=== PATIENT | female | born 1990 | race Caucasian/White ===

== ENCOUNTER 2017-02-14 10:58 | Emergency (ER) | payer SELFPAY ==
[~2017-02-14] VITALS: Ht 180.3 cm; Wt 70.6 kg
[~2017-02-14 10:58] MED LIST: [UNRECOGNIZED DRUG - REMARK]
[2017-02-14] MEDS ORDERED: ONDANSETRON 2MG/ML, 2ML ONE (11:54)
[2017-02-14] MEDS ORDERED: HYDROmorphone 1 MG/ML, 1ML ONE (11:54)
[2017-02-14] MEDS ORDERED: HYDROmorphone 1 MG/ML, 1ML IM ONE (12:00)
[2017-02-14] MEDS ORDERED: ONDANSETRON 2MG/ML, 2ML IVPush ONE (12:00)
[2017-02-14] MEDS ORDERED: SODIUM CHLORIDE 0.9%, 500ML IVBOLUS ONE ×2 (12:00→13:00)
[2017-02-14 12:16] LABS: HEMATOCRIT 43.3 % (34.6-47.8); HEMOGLOBIN 14.8 g/dL (11.7-16.4); WHITE BLOOD COUNT 9.4 x10^3/uL (3.4-10)
[2017-02-14 12:25] LABS: BLOOD UREA NITROGEN 14 mg/dL (7-18)
[2017-02-14 12:30] LABS: ASPARTATE AMINO TRANSFERASE 15 U/L (15-37)
[2017-02-14] MEDS ORDERED: MAALOX/HYOSCYAMINE/LIDOCAINE 45 ML BTL PO ONE (14:00)
[2017-02-14] MEDS ORDERED: ONDANSETRON ODT 4 MG PO ONE (14:00)
[2017-02-14] MEDS ORDERED: MAALOX/HYOSCYAMINE/LIDOCAINE 45 ML BTL ONE (14:03)
[2017-02-14] MEDS ORDERED: PROMETHAZINE 25 MG/ML, 1ML ONE (14:03)
[2017-02-14 14:15] VITALS: BP 126/67
[2017-02-14] MEDS ORDERED: PROMETHAZINE 25 MG/ML, 1ML IM ONE (14:30)
== END 2017-02-14 15:31 ==
LOC: ED 13:19
DX: K21.9 Gastro-esophageal reflux disease without esophagitis (principal); K29.00 Acute gastritis without bleeding; K25.9 Gastric ulcer, unspecified as acute or chronic, without hemorrhage or perforation; R11.2 Nausea with vomiting, unspecified; Z87.891 Personal history of nicotine dependence
CPT/HCPCS: 36415; 76700; 80053; 81001; 83690; 84703; 85025; 96361; 96372; 96374; 99285; J1170; J2405; J2550; J7040

== ENCOUNTER 2018-10-01 09:25 | Emergency (ER) | payer MEDICAID ==
[~2018-10-01] VITALS: Ht 180.3 cm; Wt 60.0 kg
--- NOTE | 2018-10-01 09:41 | NUR ---
PT PRESENTED TO ED WITH N/V SINCE MONDAY. PT STATED SHE ATE OUT AT [employer] AND THEN DEVELOPED VOMITTING FOR SEVERAL DAYS. PT A&OX4. PT PLACED IN ROOM AND PLACED ON BP AND CONT. PULSE OXIMETER. ASSESSMENT COMPLETED. CALL LIGHT IN REACH.
[2018-10-01] MEDS ORDERED: FAMOTIDINE 20 MG/2 ML ONE (09:44)
[2018-10-01] MEDS ORDERED: ONDANSETRON 2MG/ML, 2ML ONE (09:44)
[2018-10-01] MEDS ORDERED: SODIUM CHLORIDE 0.9% 1,000ML IVBOLUS ONE (10:00)
[2018-10-01] MEDS ORDERED: MAALOX/HYOSCYAMINE/LIDOCAINE 45 ML BTL PO ONE (10:00)
[2018-10-01] MEDS ORDERED: SODIUM CHLORIDE FLUSH 10ML SYR IVF ONE (10:00)
[2018-10-01] MEDS ORDERED: ONDANSETRON 2MG/ML, 2ML IVPush ONE (10:00)
[2018-10-01] MEDS ORDERED: FAMOTIDINE 20 MG/2 ML IVP ONE (10:00)
[2018-10-01 10:13] LABS: BASOPHILS # (AUTO) 0.05 x10^3/uL (0-0.1); BASOPHILS % (AUTO) 1 % (0-1); EOSINOPHILS % (AUTO) 0 % (1-7); LYMPHOCYTES # (AUTO) 0.59 x10^3/uL (1-3.4); LYMPHOCYTES % (AUTO) 8 % (22-44); MD NO; MEAN CORPUSCULAR HEMOGLOBIN 29.7 pg (27.0-34.8); MEAN CORPUSCULAR HGB CONC 34.7 g/dL (32.4-35.8); MEAN CORPUSCULAR VOLUME 85.6 fL (80-100); MEAN PLATELET VOLUME 7.9 fL (7.4-10.4); MONOCYTES # (AUTO) 0.18 x10^3/uL (0.2-0.8); MONOCYTES % (AUTO) 2 % (2-9); NEUTROPHILS # (AUTO) 7.02 x10^3/uL (1.8-6.8); NEUTROPHILS % (AUTO) 90 % (42-75); PLATELET COUNT 262 x10^3/uL (130-400); RED BLOOD COUNT 5.35 x10^6/uL (3.82-5.3); RED CELL DISTRIBUTION WIDTH 13.9 % (9.6-15.2)
[2018-10-01 10:25] LABS: ALANINE AMINOTRANSFERASE 25 U/L (12-78); ALBUMIN 4.7 g/dL (3.4-5.0); ANION GAP 12 mmol/L (5-15); CALCIUM 9.6 mg/dL (8.5-10.1); CHLORIDE 106 mmol/L (98-107); CREATININE 1.03 mg/dL (0.55-1.02)
[2018-10-01] MEDS ORDERED: MAALOX/HYOSCYAMINE/LIDOCAINE 45 ML BTL ONE (10:27)
[2018-10-01 10:30] LABS: ALKALINE PHOSPHATASE 67 U/L (45-117); BILIRUBIN,TOTAL 1.3 mg/dL (0.2-1.0)
[2018-10-01] MEDS ORDERED: MORPHINE SULFATE 4 MG/ML, 1ML IVPush PRN (11:00)
[2018-10-01] MEDS ORDERED: MORPHINE SULFATE 4 MG/ML, 1ML ONE (11:05)
--- NOTE | 2018-10-01 11:09 | NUR ---
PT STATES ABD PAIN OF 9/10. PT GIVEN MORPHINE 4 MG IV.
--- NOTE | 2018-10-01 11:09 | NUR ---
US AT BEDSIDE
--- NOTE | 2018-10-01 11:47 | NUR ---
PT STATING PAIN IS BETTER AFTER MORPHINE GIVEN.
[2018-10-01 13:28] VITALS: BP 127/75
== END 2018-10-01 13:30 | disposition home or self-care (01) ==
LOC: ED 11:47
DX: E86.0 Dehydration (principal); R11.2 Nausea with vomiting, unspecified
CPT/HCPCS: 36415; 76700; 80053; 83690; 84703; 85025; 96361; 96374; 96375; 99284; J2405; J3490; J7030

== ENCOUNTER 2020-08-26 12:20 | Emergency (ER) | payer SELFPAY ==
[~2020-08-26] VITALS: Ht 180.3 cm; Wt 69.3 kg
--- NOTE | 2020-08-26 12:59 | NUR ---
ranch supervisor: pt from lobby to room [id number]
--- NOTE | 2020-08-26 13:27 | NUR ---
PT C/O DISCONNECTED THOUGHTS. PT STATES "ILL BE DRIVING AND I WILL BE CONFUSED ON HOW I AM DRIVING OR HOW THE CAR IS WORKING." PT HAS ALWAYS HAD SOME DISCONNECTED THOUGHTS BUT IT HAS BEEN WORSENING LATELY. PT ALSO C/O HEADACHE. PT HIT HEAD 2 WEEKS AGO. PT UNSURE IF SHE LOST CONSCIOUS. PT WAS NOT SEEN AT THAT TIME.
--- NOTE | 2020-08-26 14:03 | NUR ---
PT AMBULATORY WITH STEADY GAIT TO BATHROOM. PT VERBALIZED UNDERSTANDING OF HOW TO OBTAIN CLEAN CATCH SAMPLE. PT PROVIDED URINE SAMPLE. SENT TO LAB. Addendum: 08/26/20 at 1405 by MINGALLS BREAK RN: PT AMBULATORY WITH STEADY GAIT TO BATHROOM. PT VERBALIZED UNDERSTANDING OF HOW TO OBTAIN CLEAN CATCH SAMPLE. PT PROVIDED URINE SAMPLE. SAMPLE WALKED TO LAB.
[2020-08-26 14:33] LABS: MICROSCOPIC NOT IND
--- NOTE | 2020-08-26 14:35 | NUR ---
SENIOR BUYER BEDSIDE
[2020-08-26 14:37] LABS: BASOPHILS % (AUTO) 1 % (0-1); EOSINOPHILS % (AUTO) 1 % (1-7); LYMPHOCYTES % (AUTO) 23 % (22-44); MEAN CORPUSCULAR HEMOGLOBIN 28.8 pg (27.0-34.8); MEAN CORPUSCULAR HGB CONC 32.9 g/dL (32.4-35.8); MEAN PLATELET VOLUME 7.3 fL (7.4-10.4); MONOCYTES % (AUTO) 9 % (2-9); NEUTROPHILS % (AUTO) 67 % (42-75); PLATELET COUNT 234 x10^3/uL (130-400); RED CELL DISTRIBUTION WIDTH 13.9 % (9.6-15.2)
[2020-08-26 14:38] LABS: MD NO
[2020-08-26 14:46] LABS: AMPHETAMINE SCREEN, URINE Negative (Negative); BARBITURATE SCREEN, URINE Negative (Negative); CANNABINOID SCREEN, URINE Positive (Negative); METHADONE SCREEN, URINE Negative (Negative)
[2020-08-26 14:47] LABS: BENZODIAZEPINE SCREEN, URINE Negative (Negative); COCAINE SCREEN, URINE Negative (Negative); OPIATE SCREEN, URINE Negative (Negative)
[2020-08-26 14:49] LABS: ALBUMIN 3.9 g/dL (3.4-5.0); ANION GAP 6 mmol/L (5-15); CALCIUM 9.1 mg/dL (8.5-10.1); CHLORIDE 107 mmol/L (98-107)
[2020-08-26 14:54] LABS: SALICYLATE LEVEL < 1.7 mg/dL (2.8-20.0)
[2020-08-26 14:55] LABS: ALANINE AMINOTRANSFERASE 23 U/L (12-78); ALKALINE PHOSPHATASE 56 U/L (45-117); BILIRUBIN,TOTAL 0.3 mg/dL (0.2-1.0); CREATININE 0.85 mg/dL (0.55-1.02); TOTAL PROTEIN 7.6 g/dL (6.4-8.2)
--- NOTE | 2020-08-26 15:32 | NUR ---
RESTAURANT FLOOR MANAGER STILL BEDSIDE
[2020-08-26 15:36] VITALS: BP 122/70
[2020-08-26] MEDS ORDERED: ARIPIPRAZOLE 2 MG TABLET PO ONE (16:00)
--- NOTE | 2020-08-26 17:25 | NUR ---
PT REC'VD DISCHARGE INSTRUCTIONS AND EDUCATION. PT HAD NO FURTHER QUESTIONS. PT AMBULATED TO DC AREA, STEADY GAIT.
== END 2020-08-26 17:33 | disposition home or self-care (01) ==
LOC: ED 17:20
DX: F23 Brief psychotic disorder (principal); F31.64 Bipolar disorder, current episode mixed, severe, with psychotic features; E87.6 Hypokalemia; K21.9 Gastro-esophageal reflux disease without esophagitis; R41.0 Disorientation, unspecified; Z87.891 Personal history of nicotine dependence
CPT/HCPCS: 36415; 80053; 80143; 80179; 80307; 80320; 81003; 84703; 85025; 99283; G0480